=== PATIENT | female | born 1990 | race Hispanic/Latino ===

== ENCOUNTER 2017-06-18 16:24 | Emergency (ER) | payer OTHER ==
[2017-06-18 17:48] LABS: BASO # 0.1 10^3/uL (0.0-0.2); BASO % 0.6 % (0.0-1.0); EOS # 0.2 10^3/uL (0.0-0.50); EOS % 1.9 % (0.0-3.0); HEMATOCRIT 35.3 % (36.0-47.0); HEMOGLOBIN 11.7 g/dl (12.0-16.0); IMMATURE GRANULOCYTE % 0.1 % (0-0); LYMPH # 2.8 10^3/uL (1.5-6.5); LYMPH % 35.4 % (24.0-44.0); MEAN CORPUSCULAR HEMOGLOBIN 30.5 pg (27.0-33.0); MEAN CORPUSCULAR HGB CONC 33.1 g/dl (32.0-36.5); MEAN CORPUSCULAR VOLUME 92.2 fl (80.0-96.0); MONO # 0.7 10^3/uL (0.0-0.8); MONO % 8.6 % (0.0-5.0); NEUTROPHILS # 4.2 10^3/uL (1.8-7.7); NEUTROPHILS % 53.4 % (36.0-66.0); PLATELET COUNT, AUTOMATED 252 10^3/uL (150-450); RED BLOOD COUNT 3.83 10^6/uL (4.00-5.40); RED CELL DISTRIBUTION WIDTH 12.3 % (11.5-14.5); WHITE BLOOD COUNT 7.8 10^3/uL (4.0-10.0)
[2017-06-18 17:55] LABS: KETONE, URINE AUTO RFX NEGATIVE (NEGATIVE); LEUKOCYTE ESTERASE UR AUTO RFX 3+ (NEGATIVE); NITRITE, URINE AUTO RFX NEGATIVE (NEGATIVE); RBC, URINE AUTO RFX 2 /HPF (0-3); SPECIFIC GRAVITY UR AUTO RFX 1.013 (1.002-1.035); SQUAM EPITHELIAL CELL UR AURFX 4 /HPF (0-6); WBC, URINE AUTO RFX 3 /HPF (0-3)
[2017-06-18 18:06] LABS: ANION GAP 7 MEQ/L (8-16); BLOOD UREA NITROGEN 11 MG/DL (7-18); CALCIUM LEVEL 8.8 MG/DL (8.5-10.1); CARBON DIOXIDE LEVEL 29 MEQ/L (21-32); CHLORIDE LEVEL 104 MEQ/L (98-107); CREATININE FOR GFR 0.69 MG/DL (0.55-1.02); GLOMERULAR FILTRATION RATE > 60.0 (>60); GLUCOSE, FASTING 82 MG/DL (70-105); POTASSIUM SERUM 3.9 MEQ/L (3.5-5.1); SODIUM LEVEL 140 MEQ/L (136-145)
[2017-06-18] MEDS: MAGNESIUM CITRATE 300 ML BTL PO (19:15)
== END 2017-06-18 19:58 | disposition home or self-care (01) ==
LOC: M ED 16:24
DX: K59.00 Constipation, unspecified (principal); N30.00 Acute cystitis without hematuria
CPT/HCPCS: 74018

== ENCOUNTER → 2017-12-19 | Outpatient (REF) | payer OTHER | LOC: M SFHCLERA 20:13 | DX: J02.9 Acute pharyngitis, unspecified (principal) ==

== ENCOUNTER → 2018-12-15 | Outpatient (CLI) | payer OTHER ==
[~2018-12-15] MED LIST: IBUP-1022 PO; MACR100C43 PO; PRENTAB7 PO; tylenol PO
--- NOTE | 2018-12-15 17:38 | REP ---
DIAGNOSTIC MAMMOGRAM RIGHT BREAST AND BILATERAL BREAST ULTRASOUND: No family history of breast cancer. Ladonna Ambrocio lifetime risk of breast cancer 10.1%. Reportedly there are three palpable abnormalities of the right breast and these are marked on the skin with triangular markers. Two are laterally and one is slightly medially and posteriorly. There is also history of yellow left nipple discharge for two months. Moderately dense heterogeneous fibroglandular tissue is seen bilaterally. I see no definite mass or architectural distortion bilaterally. No clustered microcalcifications are seen bilaterally. Real-time sonographic evaluation of right breast performed at the site of the three reported palpable lumps. Dense fibroglandular tissue is seen without a discrete cystic or solid nodule. Real-time sonographic evaluation of the left retroareolar region is seen and demonstrates no cystic or solid nodule. IMPRESSION: ACR 2 benign. Heterogeneously dense breast parenchyma limits the sensitivity of the mammogram. There is no definite mass seen mammographically. Sonographically, at the site of the palpable abnormalities on the right there is dense fibroglandular tissue without a discrete cystic or solid nodule. There is also no discrete cystic or solid nodule in the left retroareolar region. A negative mammogram and ultrasound should not deter biopsy if there is a clinically suspicious palpable mass present. Further evaluation of the palpable lumps on the right and the left sided nipple discharge could be made with MRI of the breasts, particularly given the dense breast parenchyma. BIRADS 2: BI-RADS/ACR category 2 mammogram. Benign Findings. This mammogram was interpreted with the aid of an FDA-approved computer-aided detection system. The patient states she/he had a clinical breast exam 11/2018. The patient letter being requested is M2. Electronically Signed by Quintin Whiteside MD 12/18/2018 10:03 A
== END ==
LOC: M RAD 13:07
PROVIDERS: ATTEND Family Medicine
DX: Z12.31 Encounter for screening mammogram for malignant neoplasm of breast (principal); N63.10 Unspecified lump in the right breast, unspecified quadrant

== ENCOUNTER 2019-12-27 19:09 | Emergency (ER) | payer OTHER ==
[~2019-12-27] VITALS: Ht 152.4 cm; Wt 74.0 kg
[2019-12-27] MEDS ORDERED: GNP28TAB2 PO (19:12)
[2019-12-27 20:43] LABS: BASO % 0.1 % (0.0-1.0); EOS # 0.1 10^3/uL (0.0-0.5); EOS % 1.7 % (0.0-3.0); HEMATOCRIT 34.5 % (36.0-47.0); HEMOGLOBIN 11.3 g/dl (12.0-15.5); LYMPH # 1.7 10^3/uL (1.5-5.0); LYMPH % 23.8 % (24.0-44.0); MEAN CORPUSCULAR HGB CONC 32.8 g/dl (32.0-36.5); MEAN CORPUSCULAR VOLUME 94.5 fl (80.0-96.0); MONO # 0.5 10^3/uL (0.0-0.8); MONO % 7.2 % (0.0-5.0); NEUTROPHILS # 4.7 10^3/uL (1.5-8.5); NEUTROPHILS % 66.9 % (36.0-66.0); PLATELET COUNT, AUTOMATED 247 10^3/uL (150-450); RED BLOOD COUNT 3.65 10^6/uL (4.00-5.40); WHITE BLOOD COUNT 7.1 10^3/uL (4.0-10.0)
[2019-12-27 20:46] LABS: APPEARANCE, URINE CLEAR (CLEAR); BACTERIA, URINE AUTO 1+ (NEGATIVE); BILIRUBIN, URINE AUTO NEGATIVE (NEGATIVE); BLOOD, URINE BLOOD 3+ (NEGATIVE); COLOR, URINE STRAW (YELLOW); GLUCOSE, URINE (UA) AUTO NEGATIVE (NEGATIVE); KETONE, URINE AUTO NEGATIVE (NEGATIVE); LEUKOCYTE ESTERASE, URINE AUTO NEGATIVE (NEGATIVE); MUCUS, URINE SMALL (NEGATIVE); NITRITE, URINE AUTO NEGATIVE (NEGATIVE); PROTEIN, URINE AUTO NEGATIVE (NEGATIVE); RBC, URINE AUTO 67 /HPF (0-3); SPECIFIC GRAVITY URINE AUTO 1.003 (1.002-1.035); SQUAMOUS EPITHELIAL CELL UR AU 1 /HPF (0-6); UROBILINOGEN, URINE AUTO 0.2 mg/dL (0.0-2.0); WBC, URINE AUTO 4 /HPF (0-3)
[2019-12-27 21:15] LABS: BLOOD UREA NITROGEN 8 MG/DL (7-18); CARBON DIOXIDE LEVEL 28 MEQ/L (21-32); CHLORIDE LEVEL 106 MEQ/L (98-107); CREATININE FOR GFR 0.54 MG/DL (0.55-1.30); GLOMERULAR FILTRATION RATE > 60.0 (>60); GLUCOSE, FASTING 78 MG/DL (70-100); HCG, SERUM QUANTITATIVE 30235 MIU/ML; POTASSIUM SERUM 4.2 MEQ/L (3.5-5.1); SODIUM LEVEL 137 MEQ/L (136-145)
--- NOTE | 2019-12-27 22:10 | REPVR ---
PROCEDURE INFORMATION: Exam: US First Trimester, Transabdominal Exam date and time: 12/27/2019 9:38 PM Age: 29 years old Clinical indication: Lmp or gestational age (in weeks): 09/25/19; Antepartum complications; Bleeding; ; Additional info: 13wks preg with vag bleeding and cramping TECHNIQUE: Imaging protocol: Real-time transabdominal obstetrical ultrasound of the maternal pelvis and a first trimester , less than 14 weeks 0 days, with image documentation. COMPARISON: No relevant prior studies available. FINDINGS: Gestation: Single intrauterine fetus. Heart rate: heartbeat of 163 bpm. Presentation: Variable lie. Placenta: Posterior placenta with small hemorrhage at the caudal margin adjacent to the cervix measuring 12 x 18 x 25 mm. Amniotic fluid: Amniotic fluid is normal for gestational age. BIOMETRY: Estimated gestational age: Composite age is 13 weeks 5 days. The EDC is 06/28/2020. Estimated weight: Estimated weight is 80 g. Biparietal diameter: The BPD measures 2.4 cm suggesting an age of 14 weeks 0 days. Head circumference: The head circumference measures 8.3 cm suggesting an age of 13 weeks 6 days. Abdominal circumference: The abdominal circumference measures 6.8 cm suggesting an age of 13 weeks 3 days. Femur length: The femur length measures 1.3 cm suggesting an age of 13 weeks 6 days. MATERNAL: Uterus: Unremarkable. Cervix: The cervix is closed measuring 5.3 cm. Right adnexa: The right ovary measures 3.7 x 2.3 x 2.9 cm and demonstrates arterial and venous blood flow. Left adnexa: The left ovary measures 4.4 x 3.3 x 4.4 cm and demonstrates a simple appearing cyst measuring 3.3 x 2.5 x 2.7 cm. There is left ovarian arterial and venous blood flow. Intraperitoneal space: No intraperitoneal free fluid. IMPRESSION: 1. Single live intrauterine fetus in variable lie with a composite age of 13 weeks 5 days. The EDC is 06/28/2020. 2. Small hemorrhage at the caudal margin of the posterior placenta measuring 12 x 18 x 25 mm. 3. Left ovarian cyst measuring 3.3 x 2.5 x 2.7 cm. Electronically signed by: Phan Salgado On 12/27/2019 22:10:01 PM
[2019-12-27 22:33] VITALS: BP 116/58
== END 2019-12-27 23:30 | disposition home or self-care (01) ==
LOC: M ED 19:09
DX: O20.8 Other hemorrhage in early pregnancy (principal); O34.82 Maternal care for other abnormalities of pelvic organs, second trimester; Z79.899 Other long term (current) drug therapy; Z3A.13 13 weeks gestation of pregnancy